=== PATIENT | female | born 1975 | race American Indian/Alaskan Native ===

== ENCOUNTER 2018-06-01 08:18 | Emergency (ER) | payer SELFPAY ==
[2018-06-01 08:25] VITALS: BP 149/90
[2018-06-01] MEDS ORDERED: DECADRON IM ONE (08:37)
[2018-06-01] MEDS ORDERED: FLEXERIL PO ONE (08:37)
--- NOTE | 2018-06-01 08:40 | Emergency Department Report ---
ED Neck Pain/Injury HPI - General Chief Complaint: Extremity Problem,Nontraumatic Stated Complaint: NECK AND SHOULDER PAIN Time Seen by Provider: 06/01/18 08:37 Mode of arrival: Ambulatory Limitations: No Limitations - History of Present Illness Initial Comments: Patient is a 43-year-old -[place] female who comes to the ER today complaining of acute on chronic left shoulder and neck pain. She states that this first occurred in 2012. At that time she was seen at a hospital in [place] and was given tramadol and a muscle relaxer. She states she has had no further problems with this pain until this last week. She is a fountain server. [id number] Advil and Motrin have not been helping. Patient did go to [facility] emergency room when the pain started and they gave her a muscle relaxer and it did not help. The muscle relaxer was Robaxin. Patient has no other medical problems and is on no prescribed medicines at home. - Related Data Previous Rx's Medication Instructions Recorded Last Taken Type Cyclobenzaprine [Flexeril] 10 mg PO TID PRN #10 tablet 06/01/18 Unknown Rx predniSONE [Deltasone] 50 mg PO QDAY #5 tab 06/01/18 Unknown Rx Allergies Allergy/AdvReac Type Severity Reaction Status Date / Time No Known Allergies Allergy Unverified 06/01/18 08:25 ED Review of Systems ROS: Stated complaint: NECK AND SHOULDER PAIN Other details as noted in HPI Comment: All other systems reviewed and negative Constitutional: denies: chills Eyes: denies: eye pain ENT: denies: ear pain Respiratory: denies: cough Cardiovascular: denies: palpitations Endocrine: denies: excessive sweating Genitourinary: denies: urgency Musculoskeletal: as per HPI Neurological: denies: headache Psychiatric: denies: depression Hematological/Lymphatic: denies: easy bleeding ED Past Medical Hx - Past Medical History Previous Medical History?: Yes Hx Psychiatric Treatment: Yes (Anxiety) - Surgical History Past Surgical History?: Yes Additional Surgical History: . hysterectomy - Social History Smoking Status: Current Every Day Smoker Substance Use Type: Alcohol - Medications Home Medications: Home Medications Medication Instructions Recorded Confirmed Last Taken Type Cyclobenzaprine [Flexeril] 10 mg PO TID PRN #10 tablet 06/01/18 Unknown Rx predniSONE [Deltasone] 50 mg PO QDAY #5 tab 06/01/18 Unknown Rx ED Physical Exam - General Limitations: No Limitations General appearance: alert - Head Head exam: Present: atraumatic - Eye Eye exam: Present: normal appearance, PERRL Pupils: Present: normal accommodation - ENT ENT exam: Present: normal exam - Neck Neck exam: Present: normal inspection - Cardiovascular Cardiovascular Exam: Present: regular rate - GI/Abdominal GI/Abdominal exam: Present: soft - Extremities Exam Extremities exam: Present: normal inspection, full ROM (can move through range of motion but with pain of the left upper extremity). Absent: tenderness - Back Exam Back exam: Present: normal inspection, full ROM. Absent: tenderness, CVA tenderness (R) - Neurological Exam Neurological exam: Present: alert, oriented X3 - Psychiatric Psychiatric exam: Present: normal affect, normal mood - Skin Skin exam: Present: warm, dry ED Course Vital Signs 06/01/18 08:23 Temperature 98.0 F Pulse Rate 66 Respiratory 18 Rate Blood Pressure 149/90 O2 Sat by Pulse 100 Oximetry ED Medical Decision Making - Medical Decision Making Patient has no new trauma. This is a several year old chronic issue that the patient has, with an acute flare. Patient was medicated in the ER. Discussed the need to follow-up with an orthopedic physician for possible MRI to get definitive diagnosis and treatment. Patient will be sent home with Flexeril and prednisone. A referral has been given to orthopnea. - Differential Diagnosis acute ON chronic condition Critical care attestation.: If time is entered above; I have spent that time in minutes in the direct care of this critically ill patient, excluding procedure time. ED Disposition Clinical Impression: Shoulder pain, left, Neck pain Disposition: DC-01 TO HOME OR SELFCARE Is pt being admited?: No Does the pt Need Aspirin: No Condition: Stable Instructions: Cervical Radiculopathy (ED) Additional Instructions: WARM COMPRESSES STRETCH BEFORE WORK AND BEFORE BED MEDS ORDERED FOLLOW UP ORTHO MD REFERRAL BELOW MOTRIN AND TYLENOL CAN BE USED WITH THESE MEDS GIVEN TODAY Prescriptions: Cyclobenzaprine [Flexeril] 10 mg PO TID PRN #10 tablet PRN Reason: Muscle Spasm predniSONE [Deltasone] 50 mg PO QDAY #5 tab Referrals: DORINA GRAYSON MD [Staff Physician] - 3-5 Days Time of Disposition: 08:38
== END 2018-06-01 09:14 | disposition home or self-care (01) ==
LOC: ED 08:18
DX: M25.512 Pain in left shoulder (principal); M54.2 Cervicalgia; F41.9 Anxiety disorder, unspecified; F17.200 Nicotine dependence, unspecified, uncomplicated; Z90.710 Acquired absence of both cervix and uterus
CPT/HCPCS: 96372; 99282; J1100